=== PATIENT | female | born 1985 | race Caucasian/White ===

== ENCOUNTER 2017-02-21 19:02 | Emergency (ER) | payer OTHER ==
[2017-02-21 19:07] VITALS: BP 111/76
--- NOTE | 2017-02-21 19:29 | UC ---
Lower Extremity/Ankle HPI - HPI Summary HPI Summary: Gradually increasing pain in R foot and ankle starting 2-3 days ago. Denies any memorable trauma, past injury, surgery, or new activities. States "I'm, like, the laziest person ever, I don't know how I would have injured it." Feels sharp "like stepping on a lego" when she steps down. - History of Current Complaint Chief Complaint: UCLowerExtremity Stated Complaint: FOOT INJURY Time Seen by Provider: 02/21/17 19:12 Hx Obtained From: Patient Hx Last Menstrual Period: 01/21/17 ?: No Onset/Duration: Gradual Onset, Lasting Days Severity Initially: Mild Severity Currently: Moderate Aggravating Factor(s): Standing, Ambulation Alleviating Factor(s): Rest Able to Bear Weight: Yes - Allergies/Home Medications Allergies/Adverse Reactions: Allergies Allergy/AdvReac Type Severity Reaction Status Date / Time Sulfa Drugs Allergy Unknown Unknown Verified 02/21/17 19:08 Reaction Details Ketorolac Tromethamine Allergy terrible Verified 02/21/17 19:08 [From Toradol] anxiety Home Medications: Home Medications Amphetamine MIXED SALT TAB* [Adderall TAB*] 20 mg PO QPM 02/21/17 [History Confirmed 02/21/17] Amphetamine MIXED SALT TAB* [Adderall TAB*] 40 mg PO QAM 02/21/17 [History Confirmed 02/21/17] Gabapentin CAP(*) [Neurontin 300 CAP(*)] 600 mg PO BEDTIME 02/21/17 [History Confirmed 02/21/17] LORazepam TAB(*) [Ativan 0.5 MG TAB (*)] 0.5 mg PO PRN 02/21/17 [History] PMH/Surg Hx/FS Hx/Imm Hx Respiratory History: Asthma, Pulmonary Embolism Other History Of: Negative For: Anticoagulant Therapy - Surgical History Surgical History: Yes Surgery Procedure, Year, and Place: D&C X2 - Family History Known Family History: Positive: Hypertension - Social History Lives: With Family Alcohol Use: None Substance Use Type: None Smoking Status (MU): Current Every Day Smoker Type: Cigarettes Amount Used/How Often: 1 PPD Have You Smoked in the Last Year: Yes Household Exposure Type: Cigarettes - Immunization History Most Recent Influenza Vaccination: 2012 Most Recent Tetanus Shot: unknown Most Recent Pneumonia Vaccination: 2010 Review of Systems Constitutional: Negative Skin: Negative Eyes: Negative ENT: Negative Respiratory: Negative Cardiovascular: Negative Gastrointestinal: Negative Genitourinary: Negative Motor: Negative Neurovascular: Negative Musculoskeletal: Arthralgia Neurological: Negative Psychological: Negative All Other Systems Reviewed And Are Negative: Yes Physical Exam Triage Information Reviewed: Yes Appearance: No Pain Distress, Well-Nourished Vital Signs: Initial Vital Signs Temp 96.8 F 02/21/17 19:04 Pulse 90 02/21/17 19:04 Resp 16 02/21/17 19:04 BP 111/76 02/21/17 19:04 Pulse Ox 100 02/21/17 19:04 Vital Signs Reviewed: Yes Eye Exam: Normal Eyes: Positive: Conjunctiva Clear ENT Exam: Normal ENT: Positive: Normal ENT inspection, Hearing grossly normal, Pharynx normal, TMs normal Dental Exam: Normal Neck exam: Normal Neck: Positive: Supple, Nontender, No Lymphadenopathy Respiratory Exam: Normal Respiratory: Positive: Chest non-tender, Lungs clear, Normal breath sounds, No respiratory distress, No accessory muscle use Cardiovascular Exam: Normal Cardiovascular: Positive: RRR, No Murmur Musculoskeletal Exam: Other - mild TTP R medial ankle distal to malleolus and on plantar surface of heel Musculoskeletal: Positive: Strength Intact, ROM Intact Neurological Exam: Normal Neurological: Positive: Alert Psychological Exam: Normal Skin Exam: Normal Lower Extremity Course/Dx - Differential Dx/Diagnosis Provider Diagnoses: plantar fasciitis Discharge - Discharge Plan Condition: Stable Disposition: HOME Patient Education Materials: Plantar Fasciitis (ED), Plantar Fasciitis Exercises (GEN) Referrals: Jm Chavez DPM [Doctor of Podiatric Medicine] - 1 Week Margarito Copeland DPM [Doctor of Podiatric Medicine] - 1 Week Ciaran Pa MD [Primary Care Provider] - 1 Week Additional Instructions: Start the anti-inflammatory medicine and try to do warm foot soaks followed by rolling on a can and then stretching exercises at least 3 times per day. Follow up with your primary care provider or one of the podiatrists listed here.
--- NOTE | 2017-02-21 20:00 | RAD ---
INDICATION: Right heel and medial ankle pain. TECHNIQUE: 3 views of the right foot were obtained. FINDINGS: The bones are in normal alignment. No fracture is seen. Joint spaces appear maintained. There is a small spur arising from the inferior aspect of the calcaneus. IMPRESSION: SMALL CALCANEAL SPUR.
== END 2017-02-21 20:15 | disposition home or self-care (01) ==
LOC: UCEAST 19:02
DX: M72.2 Plantar fascial fibromatosis (principal); Z88.5 Allergy status to narcotic agent; Z88.2 Allergy status to sulfonamides; J45.909 Unspecified asthma, uncomplicated; Z86.711 Personal history of pulmonary embolism; F17.210 Nicotine dependence, cigarettes, uncomplicated
CPT/HCPCS: 99212; G0463

== ENCOUNTER 2017-09-20 11:27 | Emergency (ER) | payer OTHER ==
[2017-09-20 12:50] LABS: ABS Basophils 0 10^3/ul (0-0.2); ABS Eosinophils 0 10^3/ul (0-0.6); ABS Lymphocytes 1.4 10^3/ul (1.0-4.8); ABS Monocytes 0.3 10^3/ul (0-0.8); ABS Neutrophils 4.5 10^3/ul (1.5-7.7); ABS Nucleated RBC 0 10^3/ul; Eosinophil % 0.6 % (0-6); Hematocrit 40 % (35-47); Hemoglobin 13.5 g/dl (12.0-16.0); Mean Corpuscular HGB Conc 34 g/dl (31-36); Mean Corpuscular Hemoglobin 31 pg (27-31); Mean Corpuscular Volume 93 fL (80-97); Mean Platelet Volume 7 um3 (7.4-10.4); Nucleated Red Blood Cells % 0; Platelet Count 224 10^3/ul (150-450); Red Blood Count 4.29 10^6/ul (4.0-5.4); Red Cell Distribution Width 14 % (10.5-15); White Blood Count 6.4 10^3/ul (3.5-10.8)
[2017-09-20 13:07] LABS: EGFR Non-African American 97.4 (>60)
--- NOTE | 2017-09-20 13:12 | RAD ---
Indication: Chest pain and shortness of breath. 2 views of the chest including dual energy PA views demonstrate no mediastinal shift. Heart is normal size and configuration. Lungs are clear. IMPRESSION: No active cardiopulmonary disease is noted.
[2017-09-20] MEDS ORDERED: HYDROcodone/ACETAMIN 5-325 MG* 1 TAB PO ONE (13:46)
[2017-09-20 14:11] VITALS: BP 106/69
--- NOTE | 2017-09-20 17:34 | ED ---
Johnson Vital Angela, scribed for Rui Rocha MD on 09/20/17 at 1155 . HPI Chest Pain - HPI Summary HPI Summary: This pt is a 32 y/o female presenting to [facility] c/o left sided chest pain since this morning. Pt reports she has some SOB. She notes she is unable to lie flat secondary to SOB. She states it is painful to take a deep breath. Pt describes her chest pain as sharp. Pt notes a history of PE in 2015. She is concerned about a PE today. - History of Current Complaint Chief Complaint: EDChestWallPain Time Seen by Provider: 09/20/17 11:51 Hx Obtained From: Patient Hx Last Menstrual Period: 01/21/17 Onset/Duration: Started Hours Ago, Still Present Timing: Lasting Hours Current Severity: Severe Pain Intensity: 8 Pain Scale Used: 0-10 Numeric Chest Pain Location: Left Anterior Chest Pain Radiates: No Aggravating Factor(s): Nothing Alleviating Factor(s): Nothing Associated Signs and Symptoms: Positive: Chest Pain, Shortness of Breath - Allergy/Home Medications Allergies/Adverse Reactions: Allergies Allergy/AdvReac Type Severity Reaction Status Date / Time Sulfa Drugs Allergy Unknown Unknown Verified 09/20/17 11:56 Reaction Details Ketorolac Tromethamine AdvReac terrible Verified 09/20/17 11:56 [From Toradol] anxiety Home Medications: Home Medications busPIRone TAB* [Buspar TAB*] 10 mg PO BID 09/20/17 [History Confirmed 09/20/17] PMH/Surg Hx/FS Hx/Imm Hx Endocrine/Hematology History: Denies: Hx Anticoagulant Therapy, Hx Diabetes, Hx Thyroid Disease Cardiovascular History: Denies: Hx Congestive Heart Failure, Hx Hypertension, Hx Pacemaker/ICD Respiratory History: Reports: Hx Asthma, Hx Pulmonary Edema, Hx Pulmonary Embolism - right lung 01/16/14, Other Respiratory Problems/Disorders - frequent bronchitis Denies: Hx Chronic Obstructive Pulmonary Disease (COPD) GI History: Denies: Hx Ulcer History: Reports: Hx Kidney Infection - multiple; none for 4-5 years, Hx Renal Disease - FREQUENT INFECTIONS, Other Problems/Disorders - FREQUENT KIDNEY INFECTIONS Musculoskeletal History: Reports: Hx Back Problems Sensory History: Reports: Hx Contacts or Glasses - GLASSES Denies: Hx Hearing Aid Opthamlomology History: Reports: Hx Contacts or Glasses - GLASSES Neurological History: Reports: Other Neuro Impairments/Disorders - BIPOLAR WELL CONTROLLED ADHD Denies: Hx Dementia, Hx Seizures Psychiatric History: Reports: Hx Anxiety, Hx Attention Deficit Hyperactivity Disorder, Hx Depression, Hx Bipolar Disorder, Other Psychiatric Issues/ Disorders - bipolar Denies: Hx Panic Disorder, Hx Substance Abuse - Surgical History Surgery Procedure, Year, and Place: D&C X2 Hx Anesthesia Reactions: No - Immunization History Date of Influenza Vaccine: 06/2013 Infectious Disease History: No Infectious Disease History: Denies: Hx Clostridium Difficile, Hx Hepatitis, Hx Human Immunodeficiency Virus (HIV), Hx of Known/Suspected MRSA, Hx Shingles, Hx Tuberculosis, History Other Infectious Disease, Traveled Outside the [place] in Last 30 Days - Family History Known Family History: Positive: Hypertension - Social History Alcohol Use: None Substance Use Type: Reports: None Smoking Status (MU): Current Every Day Smoker Type: Cigarettes Amount Used/How Often: 1 PPD Have You Smoked in the Last Year: Yes Review of Systems Negative: Fever, Chills Positive: Chest Pain Positive: Shortness Of Breath All Other Systems Reviewed And Are Negative: Yes Physical Exam - Summary Physical Exam Summary: VITAL SIGNS: Reviewed. GENERAL: Patient is a well-developed and nourished female who is lying comfortable in the stretcher. Patient is not in any acute respiratory distress. HEAD AND FACE: No signs of trauma. No ecchymosis, hematomas or skull depressions. No sinus tenderness. EYES: PERRLA, EOMI x 2, No injected conjunctiva, no nystagmus. EARS: Hearing grossly intact. Ear canals and tympanic membranes are within normal limits. MOUTH: Oropharynx within normal limits. NECK: Supple, trachea is midline, no adenopathy, no JVD, no carotid bruit, no c- spine tenderness, neck with full ROM. CHEST: Symmetric, no tenderness at palpation LUNGS: Clear to auscultation bilaterally. No wheezing or crackles. CVS: Regular rate and rhythm, S1 and S2 present, no murmurs or gallops appreciated. ABDOMEN: Soft, non-tender. No signs of distention. No rebound no guarding, and no masses palpated. Bowel sounds are normal. EXTREMITIES: FROM in all major joints, no edema, no cyanosis or clubbing. NEURO: Alert and oriented x 3. No acute neurological deficits. Speech is normal and follows commands. SKIN: Dry and warm Triage Information Reviewed: Yes Vital Signs On Initial Exam: Initial Vitals Temp Pulse Resp BP Pulse Ox 97.2 F 95 18 122/79 97 09/20/17 11:32 09/20/17 11:32 09/20/17 11:32 09/20/17 11:32 09/20/17 11:32 Vital Signs Reviewed: Yes Diagnostics - Vital Signs Vital Signs Temp Pulse Resp BP Pulse Ox 09/20/17 11:32 97.2 F 95 18 122/79 97 - Laboratory Result Diagrams: 09/20/17 12:26 09/20/17 12:26 Lab Statement: Any lab studies that have been ordered have been reviewed, and results considered in the medical decision making process. - Radiology Chest XR Xray Interpretation: No Acute Changes - IMPRESSION: No active cardiopulmonary disease is noted. Dr. Rocha has reviewed this radiology report. Radiology Interpretation Completed By: Radiologist - EKG 11:37 Cardiac Rate: NL EKG Rhythm: Sinus Rhythm - at 80 bpm EKG Interpretation: No ST elevation. Normal axis. Re-Evaluation - Re-Evaluation First Eval Re-Evaluation Time: 13:50 Comment: I reviewed the lab and XR results with the pt. Chest Pain Course/Dx - Course Course Of Treatment: This pt is a 32 y/o female presenting to [facility] c/o left sided chest pain since this morning. Pt reports she has some SOB. She notes she is unable to lie flat secondary to SOB. She states it is painful to take a deep breath. Pt describes her chest pain as sharp. Pt notes a history of PE in 2015. She is concerned about a PE today. Test results without any significant abnormalities. The pts pain was sharp and mostly on the left side of the chest. The d-dimer is negative, therefore I have no suspicion for PE, and also I have no suspicion for acute coronary syndrome since her troponin is 0.00. After pt was given Toradol, the pts symptoms have improved and resolved. Therefore , she will be discharged home with follow up from her PCP. - Diagnoses Provider Diagnoses: Atypical chest pain Discharge - Discharge Plan Condition: Stable Disposition: HOME Patient Education Materials: Chest Pain (ED) Referrals: Ciaran Pa MD [Primary Care Provider] - Additional Instructions: Please follow up with your primary care provider. RETURN TO THE ED FOR ANY WORSENING SYMPTOMS. The documentation as recorded by the Johnson rangel Angela accurately reflects the service I personally performed and the decisions made by me, Rui Rocha MD.
== END 2017-09-20 14:51 | disposition home or self-care (01) ==
LOC: ED 11:27
DX: R07.89 Other chest pain (principal); R06.02 Shortness of breath; Z32.02 Encounter for pregnancy test, result negative; J45.909 Unspecified asthma, uncomplicated; Z86.711 Personal history of pulmonary embolism; Z87.440 Personal history of urinary (tract) infections; F31.9 Bipolar disorder, unspecified; F90.9 Attention-deficit hyperactivity disorder, unspecified type; Z88.5 Allergy status to narcotic agent; Z88.2 Allergy status to sulfonamides; F17.210 Nicotine dependence, cigarettes, uncomplicated
CPT/HCPCS: 36415; 71046; 80053; 82550; 83880; 84484; 84702; 85025; 85379; 86140; 93005; 99282

== ENCOUNTER 2018-03-08 18:32 | Inpatient (IN) | payer OTHER ==
[2018-03-08 19:12] LABS: ABS Basophils 0.1 10^3/ul (0-0.2); ABS Eosinophils 0.1 10^3/ul (0-0.6); ABS Lymphocytes 1.7 10^3/ul (1.0-4.8); ABS Monocytes 0.4 10^3/ul (0-0.8); ABS Neutrophils 4.9 10^3/ul (1.5-7.7); ABS Nucleated RBC 0 10^3/ul; Eosinophil % 0.8 % (0-6); Hematocrit 42 % (35-47); Hemoglobin 14.3 g/dl (12.0-16.0); Lymphocyte % 23.8 % (25-47); Mean Corpuscular HGB Conc 34 g/dl (31-36); Mean Corpuscular Hemoglobin 31 pg (27-31); Mean Corpuscular Volume 91 fL (80-97); Mean Platelet Volume 6.7 um3 (7.4-10.4); Nucleated Red Blood Cells % 0.1; Platelet Count 283 10^3/ul (150-450); Red Blood Count 4.61 10^6/ul (4.00-5.40); Red Cell Distribution Width 14 % (10.5-15); White Blood Count 7.1 10^3/ul (3.5-10.8)
--- NOTE | 2018-03-08 19:34 | ED ---
Psychiatric Complaint - HPI Summary HPI Summary: Pt is 32 y/o F c/o being in a manic episode. Episode onset ~ 1 month ago. Pt started experiencing worsened Sxs when her dosage of Buspar was modified. Associated Sxs: Anxiety, Sleep deprivation, JORDAN. On triage, pain noted to be ranked 7/10 and characterized as tightness. Pt noted it is "it's not going away " and "just wants to drive her car into a tree." per nurse's triage. PMHx: Bipolar disorder, "extreme" anxiety and ADD for which she takes Adderall, Abilify, Buspar and Atavan. - History Of Current Complaint Chief Complaint: EDMentalHealth Time Seen by Provider: 03/08/18 19:23 Hx Obtained From: Patient Hx Last Menstrual Period: 01/21/17 ?: No Onset/Duration: Lasting Weeks - ~1 month, Still Present Timing: Weeks Severity Currently: Moderate - 7/10 Character: Manic, Anxious Aggravating Factor(s): Recent Stress, Other - Tension - JORDAN Alleviating Factor(s): Nothing Associated Signs And Symptoms: Positive: Sleep Disturbance Related History: Positive For: Prior Psychiatric Issues - Bipolar, Anxiety, ADD Has Suicidal: Reports: Has Prior Attempt(s) - Allergies/Home Medications Allergies/Adverse Reactions: Allergies Allergy/AdvReac Type Severity Reaction Status Date / Time Sulfa (Sulfonamide Allergy Unknown Verified 03/08/18 18:39 Antibiotics) Reaction Details ketorolac [From Toradol] AdvReac Anxiety Verified 03/08/18 18:39 Home Medications: Home Medications ARIPiprazole [Abilify] 30 mg PO DAILY 03/08/18 [History Confirmed 03/08/18] Amphetamine/Dextroamph ER(NF) [Adderal XR (NF)] 40 mg PO QAM 03/08/18 [History Confirmed 03/08/18] Dextroamphetamine/Amphetamine [Adderall 20 mg Tablet] 1 tab PO 1200 03/08/18 [ History Confirmed 03/08/18] LORazepam TAB(*) [Ativan 0.5 MG TAB (*)] 0.5 mg PO DAILY PRN 03/08/18 [History Confirmed 03/08/18] busPIRone TAB* [Buspar TAB *] 15 mg PO BID 03/08/18 [History Confirmed 03/08/18] PMH/Surg Hx/FS Hx/Imm Hx Previously Healthy: No Endocrine/Hematology History: Denies: Hx Anticoagulant Therapy, Hx Diabetes, Hx Thyroid Disease Cardiovascular History: Denies: Hx Congestive Heart Failure, Hx Hypertension, Hx Pacemaker/ICD Respiratory History: Reports: Hx Asthma, Hx Pulmonary Edema, Hx Pulmonary Embolism - right lung 01/16/14, Other Respiratory Problems/Disorders - frequent bronchitis Denies: Hx Chronic Obstructive Pulmonary Disease (COPD) GI History: Denies: Hx Ulcer History: Reports: Hx Kidney Infection - multiple; none for 4-5 years, Hx Renal Disease - FREQUENT INFECTIONS, Other Problems/Disorders - FREQUENT KIDNEY INFECTIONS Musculoskeletal History: Reports: Hx Back Problems Sensory History: Reports: Hx Contacts or Glasses - GLASSES Denies: Hx Hearing Aid Opthamlomology History: Reports: Hx Contacts or Glasses - GLASSES Neurological History: Reports: Other Neuro Impairments/Disorders - BIPOLAR WELL CONTROLLED ADHD Denies: Hx Dementia, Hx Seizures Psychiatric History: Reports: Hx Anxiety, Hx Attention Deficit Hyperactivity Disorder, Hx Depression, Hx Bipolar Disorder, Other Psychiatric Issues/ Disorders - bipolar Denies: Hx Panic Disorder, Hx Substance Abuse - Surgical History Surgery Procedure, Year, and Place: D&C X2 Hx Anesthesia Reactions: No - Immunization History Date of Influenza Vaccine: June 2017 Infectious Disease History: No Infectious Disease History: Denies: Hx Clostridium Difficile, Hx Hepatitis, Hx Human Immunodeficiency Virus (HIV), Hx of Known/Suspected MRSA, Hx Shingles, Hx Tuberculosis, History Other Infectious Disease, Traveled Outside the [place] in Last 30 Days - Family History Known Family History: Positive: Hypertension - Social History Occupation: Unemployed Lives: With Family - Alcohol Use: None Substance Use Type: Reports: None Smoking Status (MU): Heavy Every Day Tobacco Smoker Type: Cigarettes Amount Used/How Often: 1 PPD Have You Smoked in the Last Year: Yes Review of Systems Positive: Other - Sleep disturbance. Negative: Fever Positive: Headache Positive: Anxious, Other - Manic All Other Systems Reviewed And Are Negative: Yes Physical Exam - Summary Physical Exam Summary: VITAL SIGNS: Reviewed. GENERAL: Patient is a well-developed and nourished female who is lying comfortable in the stretcher. Patient is not in any acute respiratory distress. HEAD AND FACE: No signs of trauma. No ecchymosis, hematomas or skull depressions. No sinus tenderness. EYES: PERRLA, EOMI x 2, No injected conjunctiva, no nystagmus. EARS: Hearing grossly intact. Ear canals and tympanic membranes are within normal limits. MOUTH: Oropharynx within normal limits. NECK: Supple, trachea is midline, no adenopathy, no JVD, no carotid bruit, no c- spine tenderness, neck with full ROM. CHEST: Symmetric, no tenderness at palpation LUNGS: Clear to auscultation bilaterally. No wheezing or crackles. CVS: Regular rate and rhythm, S1 and S2 present, no murmurs or gallops appreciated. ABDOMEN: Soft, non-tender. No signs of distention. No rebound no guarding, and no masses palpated. Bowel sounds are normal. EXTREMITIES: FROM in all major joints, no edema, no cyanosis or clubbing. NEURO: Alert and oriented x 3. No acute neurological deficits. Speech is normal and follows commands. SKIN: Dry and warm PSYCH: Somewhat tearful. Triage Information Reviewed: Yes Vital Signs On Initial Exam: Initial Vitals Temp Pulse Resp BP Pulse Ox 97.8 F 96 17 126/85 98 03/08/18 18:37 03/08/18 18:37 03/08/18 18:37 03/08/18 18:37 03/08/18 18:37 Vital Signs Reviewed: Yes Diagnostics - Vital Signs Vital Signs Temp Pulse Resp BP Pulse Ox 03/08/18 18:37 97.8 F 96 17 126/85 98 - Laboratory Lab Results: Lab Results 03/08/18 Range/Units 18:59 WBC 7.1 (3.5-10.8) 10^3/ul RBC 4.61 (4.00-5.40) 10^6/ul Hgb 14.3 (12.0-16.0) g/dl Hct 42 (35-47) % MCV 91 (80-97) fL MCH 31 (27-31) pg MCHC 34 (31-36) g/dl RDW 14 (10.5-15) % Plt Count 283 (150-450) 10^3/ul MPV 6.7 L (7.4-10.4) um3 Neut % (Auto) 69.3 (38-83) % Lymph % (Auto) 23.8 L (25-47) % [place] % (Auto) 5.3 (0-7) % Eos % (Auto) 0.8 (0-6) % Baso % (Auto) 0.8 (0-2) % Absolute Neuts (auto) 4.9 (1.5-7.7) 10^3/ul Absolute Lymphs (auto) 1.7 (1.0-4.8) 10^3/ul Absolute Monos (auto) 0.4 (0-0.8) 10^3/ul Absolute Eos (auto) 0.1 (0-0.6) 10^3/ul Absolute Basos (auto) 0.1 (0-0.2) 10^3/ul Absolute Nucleated RBC 0 10^3/ul Nucleated RBC % 0.1 Result Diagrams: 03/08/18 18:59 03/08/18 18:59 Lab Statement: Any lab studies that have been ordered have been reviewed, and results considered in the medical decision making process. Course/Dx - Course Assessment/Plan: Pt is 32 year-old F presents to the ED with a CC of an ongoing manic episode with anxiety, sleep disturbance and moderate JORDAN. Patient is medically cleared for MHE at 2022. Upon completion of MHE and consultation with Dr. Sahu, it has been determined that the pt will be admitted w a diagnosis of unspecified mood disorder. - Differential Dx/Clinical Impression Provider Diagnosis: Mood disorder Discharge - Sign-Out/Discharge Documenting (check all that apply): Patient Departure - Discharge Plan Condition: Stable Disposition: ADMITTED TO [facility] - Billing Disposition and Condition Condition: STABLE Disposition: Admitted to [facility]
[2018-03-08 19:35] LABS: EGFR Non-African American 84.5 (>60)
[2018-03-08 19:47] LABS: Urine Appearance Clear; Urine Blood 3+ (Negative); Urine Color Yellow; Urine Ketones Negative (Negative); Urine Protein Negative (Negative); Urine Red Blood Cell Trace(0-2/hpf) (Absent); Urine Specific Gravity 1.006 (1.010-1.030); Urine Urobilinogen Negative (Negative); Urine White Blood Cell Trace(0-5/hpf) (Absent)
[2018-03-08] MEDS ORDERED: Acetaminophen TAB* 325 MG PO ONE (20:38)
[2018-03-09] MEDS ORDERED: Al Hydrox/Mg Hydrox/Simet LIQ* 30 ML UDC PO PRN (01:04)
[2018-03-09] MEDS ORDERED: Nicotine GUM* 2 MG PO PRN (01:04)
[2018-03-09] MEDS ORDERED: Acetaminophen TAB* 325 MG PO PRN (01:04)
[2018-03-09] MEDS ORDERED: Mouth Piece, Nicotine* 1 EACH CARTRIDGE INH SCH (01:04)
[2018-03-09] MEDS ORDERED: LORazepam TAB(*) 0.5 MG PO PRN (01:05)
[2018-03-09] MEDS ORDERED: ARIPiprazole TAB* 15 MG PO SCH (09:00)
[2018-03-09] MEDS: busPIRone TAB* 15 MG PO SCH ×2 (09:50→20:31)
[2018-03-09] MEDS: Vitamin THERAPEUTIC TAB PO SCH (09:53)
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
[2018-03-09] MEDS: ARIPiprazole TAB* 15 MG PO SCH (20:30)
[2018-03-10] MEDS: Vitamin THERAPEUTIC TAB PO SCH (09:02)
[2018-03-10] MEDS: busPIRone TAB* 15 MG PO SCH ×2 (09:02→20:35)
[2018-03-10] MEDS: lamoTRIgine TAB(*) 25 MG PO SCH ×2 (10:57→20:35)
[2018-03-10] MEDS: Nicotine Inhaler* 10 MG AMP INH PRN ×3 (12:26→18:32)
--- NOTE | 2018-03-10 13:19 | PN ---
MHU: Group Therapy Note - Service Type Service Type: [id number] Group Psychotherapy - Cognitive Behavioral Group Therapy ( CBT):Patient was attentive and participatory in CBT programming this morning, and remained in good behavioral control. Patient expressed positive insights regarding relevant treatment interventions and goals.
--- NOTE | 2018-03-10 14:26 | PN ---
Subjective - Subjective Date of Service: 03/10/18 Service Type: [id number] Hosp care 25 min moderate complexity Subjective: Shelly meets with Jovita Landon LMSW, her , son, and me in the comfort room. She would like to leave today, but appears stressed and unhappy. In part, this could be due to lack of nicotine. While her is silent, Shelly is clear that she is doing everything correctly, including taking meds and going to groups, and that she is ready to go. We discuss that it could be better for her to stay an additional day to consolidate the gains she's made and to continue to become healthier. Objective - Appearance Appearance: Well Developed/Nourished Dysmorphic Features: No Hygiene: Normal Grooming: Well Kept - Behavior Psychomotor Activities: Normal Exhibits Abnormal Movement: No - Attitude and Relatedness Attitude and Relatedness: Appropriate Eye Contact: Fair - Speech Quality: Unpressured Latencies: Normal Quantity: Appropriate - Mood Patient's Decription of Mood: "Irritable" - Affect Observed Affect: Fair Affect Consistent with: Dysphoria - Thought Process Patient's Thought Process: Coherent Thought Content: No Passive Wish, No Suicidal Planning, No Homicidal Ideation, No Paranoid Ideation - Sensorium Experiencing Hallucinations: No, Sensorium is Clear Type of Hallucinations: Visual: No, Auditory: No, Command: No - Level of Consciousness Level of Consciousness: Alert Orientation: Yes Intact, Yes Orientated to Time, Yes Orientated to Place, Yes Orientated to Person - Impulse Control Impulse Control: Tenuous - Insight and Judgement Insight and Judgement: Good - Group Participation Particating in Group Activities: Yes - Medication Management Medication Management Adherence: Yes - Additional Observations Comments: Shelly is ready to leave, but she was tearful all day yesterday with a despairing affect. Today she is irritable due to wanting to leave. She is frustrated due to missing her work and being worried about her son Juno. Assessment - Assessment Merits Inpatient Hospitalization: For Immediate Safety, For Discharge Planning Inpatient DSM-V Dx: F31.63 Clinical Impression: Shelly is "crashing" from a manic episode of bipolar disorder marjorie. She is currently depressed and irritable. She is willing to start Lamictal 25 mg BID and is eager to have this plan sent to Sara, who is her DOUBLE NEEDLE OPERATOR at home. Plan - Plan Treatment Plan: Name: ELSA ISSA Birthdate: 1985 [id number] Continued Medication Management: Different Medication Medications: Current Medications Acetaminophen (Tylenol Tab*) 650 mg PO Q4H PRN PRN Reason: PAIN or TEMP > 101 F Last Admin: 03/09/18 08:01 Dose: 650 mg Al Hydrox/Mg Hydrox/Simethicone (Maalox Plus*) 30 ml PO Q4H PRN PRN Reason: INDIGESTION Aripiprazole (Abilify Tab*) 30 mg PO BEDTIME [facility] Last Admin: 03/09/18 20:30 Dose: 30 mg Buspirone HCl (Buspar Tab *) 15 mg PO BID [facility] Last Admin: 03/10/18 09:02 Dose: 15 mg Device (Nicotine Mouth Piece*) 1 each INH .CARTRIDGE [facility] Last Admin: 03/10/18 12:26 Dose: 1 each Lamotrigine (Lamictal Tab(*)) 25 mg PO BID [facility] Last Admin: 03/10/18 10:57 Dose: 25 mg Lorazepam (Ativan Tab(*)) 0.5 mg PO DAILY PRN PRN Reason: ANXIETY Multivitamins (Theragran Tab*) 1 tab PO DAILY [facility] Last Admin: 03/10/18 09:02 Dose: Not Given Nicotine (Nicotine Inhaler*) 10 mg INH Q2H PRN PRN Reason: CRAVING Last Admin: 03/10/18 12:26 Dose: 10 mg Nicotine Polacrilex (Nicotine Gum*) 2 mg PO Q2H PRN PRN Reason: CRAVING - Discharge Plan Discharge Plan: Outpatient Follow Up Additional Comments: Shelly will return home and go to see her psychiatric nurse practitioner, Sara. Lamictal will be continued and increased. Discussion of marjorie will continue as well as mood changes.
--- NOTE | 2018-03-10 16:24 | PN ---
MHU: Group Therapy Note - Service Type Service Type: [id number] Group Psychotherapy - Medication Education Group: Patient was attentive and participatory in group, and remained in good behavioral control. Patient expressed positive insights regarding relevant treatment interventions. Patient stated understanding of material discussed and had appropriate questions.
[2018-03-10] MEDS: ARIPiprazole TAB* 15 MG PO SCH (20:34)
[2018-03-11 08:02] VITALS: BP 115/76
[2018-03-11] MEDS: Nicotine Inhaler* 10 MG AMP INH PRN (08:34)
[2018-03-11] MEDS: busPIRone TAB* 15 MG PO SCH (08:35)
[2018-03-11] MEDS: Vitamin THERAPEUTIC TAB PO SCH (08:35)
[2018-03-11] MEDS: lamoTRIgine TAB(*) 25 MG PO SCH (08:35)
== END 2018-03-11 11:00 | disposition home or self-care (01) | DRG 753 ==
LOC: ED 18:32 → BSU 03-09 00:25
PROVIDERS: ADMIT Psychiatry & Neurology Psychiatry; ATTEND Psychiatry & Neurology Psychiatry
PROC: GZHZZZZ Group Psychotherapy (ICD-10-PCS; principal; 2018-03-09)
DX: F31.63 Bipolar disorder, current episode mixed, severe, without psychotic features (principal); F41.9 Anxiety disorder, unspecified; F90.9 Attention-deficit hyperactivity disorder, unspecified type; F17.210 Nicotine dependence, cigarettes, uncomplicated; J45.909 Unspecified asthma, uncomplicated; R51 Headache; G47.9 Sleep disorder, unspecified; Z62.810 Personal history of physical and sexual abuse in childhood; Z81.8 Family history of other mental and behavioral disorders; Z88.8 Allergy status to other drugs, medicaments and biological substances; Z88.2 Allergy status to sulfonamides; Z86.711 Personal history of pulmonary embolism; Z82.49 Family history of ischemic heart disease and other diseases of the circulatory system; Z56.0 Unemployment, unspecified
CPT/HCPCS: 36415; 80053; 80061; 80307; 80320; 80329; 81003; 81015; 83036; 84443; 85025; 87086; 90853; 99222; 99232; 99238; 99284; A9270-GY; G0480

== ENCOUNTER 2018-03-15 14:14 | Emergency (ER) | payer SELFPAY ==
[2018-03-15] MEDS ORDERED: NS 0.9% 1000 ML* 1,000 ML IV ONE (14:30)
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
[2018-03-15 15:03] LABS: ABS Basophils 0 10^3/ul (0-0.2); ABS Eosinophils 0 10^3/ul (0-0.6); ABS Lymphocytes 1.5 10^3/ul (1.0-4.8); ABS Monocytes 0.4 10^3/ul (0-0.8); ABS Neutrophils 4.9 10^3/ul (1.5-7.7); ABS Nucleated RBC 0 10^3/ul; Eosinophil % 0.4 % (0-6); Hematocrit 40 % (35-47); Hemoglobin 13.7 g/dl (12.0-16.0); Lymphocyte % 22.1 % (25-47); Mean Corpuscular HGB Conc 34 g/dl (31-36); Mean Corpuscular Hemoglobin 31 pg (27-31); Mean Corpuscular Volume 91 fL (80-97); Mean Platelet Volume 6.7 um3 (7.4-10.4); Nucleated Red Blood Cells % 0; Platelet Count 259 10^3/ul (150-450); Red Blood Count 4.41 10^6/ul (4.00-5.40); Red Cell Distribution Width 15 % (10.5-15); White Blood Count 6.9 10^3/ul (3.5-10.8)
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
[2018-03-15 15:11] LABS: INR 0.94 (0.77-1.02)
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
[2018-03-15 15:24] LABS: EGFR Non-African American 82.1 (>60)
[2018-03-15] MEDS ORDERED: oxyCODONE/Acetamin 5/325 MG* TAB PO ONE (15:40)
--- NOTE | 2018-03-15 15:51 | RAD ---
Indication: Left forearm pain. 2 views of left forearm demonstrates no fracture. No other bone or joint abnormality is noted. IMPRESSION: No fracture of the left forearm is noted.
--- NOTE | 2018-03-15 15:51 | RAD ---
Indication: Left lower leg pain. 2 views of left lower leg demonstrates no fracture. No other bone or joint abnormality is identified. IMPRESSION: No fracture of the left lower leg is noted.
[2018-03-15] MEDS ORDERED: Tetan/Diph/Pertus SYR(Tdap)* 0.5 ML SYR(BOOSTRIX) use SYR IM ONE (16:31)
[2018-03-15 17:00] VITALS: BP 134/71
== END 2018-03-15 16:58 | disposition home or self-care (01) ==
LOC: ED 14:14
DX: S20.219A Contusion of unspecified front wall of thorax, initial encounter (principal); S40.022A Contusion of left upper arm, initial encounter; S80.12XA Contusion of left lower leg, initial encounter; V44.5XXA Car driver injured in collision with heavy transport vehicle or bus in traffic accident, initial encounter; Y92.410 Unspecified street and highway as the place of occurrence of the external cause; F17.210 Nicotine dependence, cigarettes, uncomplicated; Z23 Encounter for immunization; Z88.2 Allergy status to sulfonamides; Z88.5 Allergy status to narcotic agent
CPT/HCPCS: 36415; 70450; 71250; 72125; 74176; 80053; 83690; 84484; 84702; 85025; 85610; 85730; 90471; 90715; 99283; A9270-GY

== ENCOUNTER 2018-03-17 11:00 | Emergency (ER) | payer SELFPAY ==
[2018-03-17 11:12] VITALS: BP 135/88
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
== END 2018-03-17 11:30 | disposition home or self-care (01) ==
LOC: UCEAST 11:00
DX: M25.532 Pain in left wrist (principal); F17.210 Nicotine dependence, cigarettes, uncomplicated; Z88.6 Allergy status to analgesic agent; V89.2XXA Person injured in unspecified motor-vehicle accident, traffic, initial encounter; Y92.9 Unspecified place or not applicable
CPT/HCPCS: 99211; G0463

== ENCOUNTER 2018-03-21 15:22 | Emergency (ER) | payer OTHER ==
[2018-03-21 15:37] VITALS: BP 124/83
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
== END 2018-03-21 16:20 | disposition home or self-care (01) ==
LOC: UCEAST 15:22
DX: M79.632 Pain in left forearm (principal); F17.210 Nicotine dependence, cigarettes, uncomplicated; S51.802D Unspecified open wound of left forearm, subsequent encounter; L08.9 Local infection of the skin and subcutaneous tissue, unspecified; V89.2XXD Person injured in unspecified motor-vehicle accident, traffic, subsequent encounter; Z88.2 Allergy status to sulfonamides; Z88.6 Allergy status to analgesic agent
CPT/HCPCS: 99212; G0463